=== PATIENT | female | born 1965 | race Caucasian/White ===

== ENCOUNTER 2020-06-10 12:25 | Outpatient (CLI) | payer OTHER ==
--- NOTE | 2020-06-10 12:52 | XRAY Report ---
PROCEDURE: Chest 2 View X-Ray INDICATIONS: LOC FALL, PAIN TECHNIQUE: 2 views of the chest. COMPARISON: None. FINDINGS: Surgical changes and devices: None. Lungs and pleura: No pleural effusions or pneumothorax. Lungs are clear. Mediastinum: Mediastinal contours are normal. Heart size is normal. Bones and chest wall: No suspicious bony abnormalities. Soft tissues appear unremarkable. IMPRESSION: No acute cardiopulmonary abnormality. Reviewed by: Irving Pérez MD on 06/10/2020 12:50 PM [facility] Approved by: Irving Pérez MD on 06/10/2020 12:50 PM [facility] Station ID: [id number]
--- NOTE | 2020-06-10 12:52 | CT Report ---
PROCEDURE: HEAD WO INDICATIONS: LOC AFTER FALL, STERNAL PX AFTER FALL TECHNIQUE: Noncontrast 4.5 mm thick angled axial sections acquired from the foramen magnum to the vertex. For r adiation dose reduction, the following was used: automated exposure control, adjustment of mA and/or kV according to patient size. COMPARISON: None. FINDINGS: Image quality: Excellent. CSF spaces: Basal cisterns are patent. No extra-axial fluid collections. Ventricles are normal in size and shape. Brain: No midline shift. No intracranial masses or hemorrhage. Eastman-white matter interface is norm al. Skull and face: Calvarium and visualized facial bones are intact, without suspicious lesions. Sinuses: Visualized sinuses and mastoids are clear. IMPRESSION: Unremarkable head CT. No evidence of acute stroke, hemorrhage, or mass. No evidence of s ignificant intracranial sequelae of acute trauma. Reviewed by: Joselito De La Garza MD on 06/10/2020 12:50 PM PST Approved by: Joselito De La Garza MD on 06/10/2020 12:50 PM PST Station ID: [id number]
== END 2020-06-10 12:26 | disposition home or self-care (01) ==
LOC: DI 12:25
PROVIDERS: ATTEND Internal Medicine
DX: S06.9X9A Unspecified intracranial injury with loss of consciousness of unspecified duration, initial encounter (principal); R07.9 Chest pain, unspecified
CPT/HCPCS: 70450

== ENCOUNTER 2021-06-28 10:50 | Outpatient (CLI) | payer OTHER ==
[2021-06-29 11:53] LABS: HEPATITIS C ANTIBODY NON-REACTIVE (NON-REACTIVE)
[2021-06-29 12:43] LABS: HIV AG/AB 4TH GEN NON-REACTIVE (NON-REACTIVE)
== END 2021-06-28 10:51 | disposition home or self-care (01) ==
LOC: LAB 10:50
PROVIDERS: ATTEND Internal Medicine
DX: Z11.59 Encounter for screening for other viral diseases (principal); Z20.2 Contact with and (suspected) exposure to infections with a predominantly sexual mode of transmission
CPT/HCPCS: 81599; 86780; 86803; 87389